=== PATIENT | male | born 1995 | race Asian ===

== ENCOUNTER 2019-01-30 16:09 | Emergency (ER) | payer OTHER ==
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
[2019-01-30] MEDS ORDERED: IBUPROFEN 600 MG TABLET PO STA (17:19)
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
[2019-01-30 18:34] VITALS: BP 139/78
== END 2019-01-30 18:40 | disposition home or self-care (01) ==
LOC: ED 16:09
DX: S29.012A Strain of muscle and tendon of back wall of thorax, initial encounter (principal); V43.62XA Car passenger injured in collision with other type car in traffic accident, initial encounter
CPT/HCPCS: 72070; 99284; A9270